=== PATIENT | male | born 2005 | race Caucasian/White ===

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

== ENCOUNTER 2023-01-22 13:20 | Emergency (ER) | payer OTHER ==
[2023-01-22 13:39] VITALS: BP 129/72; PULSE 77; RESP 18; TEMP 98.5; BMI 27.5
[2023-01-22 14:24] LABS: BASO % 0.5 % (0-2.0); EOS % 1.1 % (0-4.5); HEMATOCRIT 47.4 % (35.4-49); HEMOGLOBIN 16.3 GM/dL (11.7-16.9); LYMPH % 40.4 % (8-40); MCH 29.2 pg (25.7-33.7); MCHC 34.4 g/dl (32.0-35.9); MEAN CELL VOLUME 85.1 fl (80-96); MEAN PLT VOLUME 8.3 fl (7.5-11.1); MONO % 9.2 % (3.8-10.2); NEUT % 48.8 % (42.8-82.8); PLATELET COUNT 208 10^3/uL (134-434); RBC 5.57 M/mm3 (4.00-5.60); RDW 13.4 % (11.9-15.9)
[2023-01-22 14:48] LABS: POTASSIUM 4.3 mmol/L (3.5-5.1)
[2023-01-22 14:50] LABS: BLOOD UREA NITROGEN 15.6 mg/dL (7-18); CALCIUM 9.2 mg/dL (8.5-10.1)
[2023-01-22 14:51] LABS: ALBUMIN 4.3 g/dl (3.4-5.0)
[2023-01-22 14:54] LABS: CREATININE 1.1 mg/dL (0.55-1.3)
[2023-01-22 14:55] LABS: BILIRUBIN,TOTAL 0.9 mg/dL (0.2-1); TOT PROT 7.6 g/dl (6.4-8.2)
== END 2023-01-22 15:28 | disposition home or self-care (01) ==
LOC: JER 13:20
DX: R00.2 Palpitations (principal); R07.89 Other chest pain
CPT/HCPCS: 36415; 80053; 84439; 84443; 84484; 85025; 93005; 93010; 99284-25

== ENCOUNTER 2023-03-12 07:17 | Emergency (ER) | payer OTHER ==
[2023-03-12 07:25] VITALS: RESP 18; BMI 25.8
[2023-03-12] MEDS ORDERED: MAG HYDROX/AL HYDROX/SIMETH 30 ML UNIT-DOSE CUP PO ONE (07:59)
[2023-03-12] MEDS ORDERED: IBUPROFEN 400 MG TABLET (FP) PO ONE ×2 (08:03→08:11)
[2023-03-12] MEDS ORDERED: FAMOTIDINE 20 MG TABLET PO ONE (08:03)
[2023-03-12] MEDS ORDERED: FAMOTIDINE 20 MG TABLET ONE (08:11)
[2023-03-12] MEDS ORDERED: MAG HYDROX/AL HYDROX/SIMETH 30 ML UNIT-DOSE CUP ONE (08:12)
[2023-03-12 08:51] VITALS: BP 115/68; PULSE 71; TEMP 97.8
== END 2023-03-12 09:12 | disposition home or self-care (01) ==
LOC: JER 07:17
DX: R07.9 Chest pain, unspecified (principal); R53.1 Weakness; M79.10 Myalgia, unspecified site; Z20.822 Contact with and (suspected) exposure to COVID-19
CPT/HCPCS: 0241U-QW; 93005; 93010; 99284-25

== ENCOUNTER 2023-12-03 13:22 | Emergency (ER) | payer OTHER ==
[2023-12-03 13:29] VITALS: BP 110/64; PULSE 69; RESP 19; TEMP 97.9; BMI 25.7
[2023-12-03 15:15] LABS: EPI CELLS 1 /uL (0-25.1); HYALINE CASTS 0 /uL (0-3.1); URINE APPEARANCE CLEAR; URINE BACTERIA 0 /uL (0-1359); URINE BILIRUBIN NEGATIVE (NEGATIVE); URINE COLOR YELLOW; URINE GLUCOSE (UA) NEGATIVE (NEGATIVE); URINE KETONE NEGATIVE (NEGATIVE); URINE LEUK ESTERASE NEGATIVE (NEGATIVE); URINE NITRITE NEGATIVE (NEGATIVE); URINE PROTEIN NEGATIVE (NEGATIVE); URINE UROBILINOGEN 0.2 mg/dL (0.2-1.0); URINE WBC 2 /uL (0-25.8)
[2023-12-03 15:29] LABS: POTASSIUM 4.3 mmol/L (3.5-5.1)
[2023-12-03 15:31] LABS: BLOOD UREA NITROGEN 14.7 mg/dL (7-18); CALCIUM 9.4 mg/dL (8.5-10.1)
[2023-12-03 15:36] LABS: BILIRUBIN,TOTAL 0.7 mg/dL (0.2-1); TOT PROT 6.9 g/dl (6.4-8.2)
[2023-12-03 15:41] LABS: URINE RBC 93 /uL (0-23.9); YEAST NONE SEEN (NEGATIVE)
[2023-12-03 16:25] LABS: HIV INTERPRETATION NEGATIVE (NEGATIVE)
== END 2023-12-03 18:07 | disposition home or self-care (01) ==
LOC: JER 13:22
DX: R31.9 Hematuria, unspecified (principal)
CPT/HCPCS: 36415; 74176-TC; 80053; 81003; 82550; 82553; 86803; 87086; 87389; 99284-25